=== PATIENT | male | born 1950 ===

== ENCOUNTER 2017-04-29 10:39 | Emergency (ER) | payer MEDICARE ==
[2017-04-29] MEDS ORDERED: Lidocaine 1%* 5 ML VIAL INJ ONE (11:26)
--- NOTE | 2017-04-29 11:26 | UC ---
Laceration HPI - HPI Summary HPI Summary: 67 Y/O male with c/O laceration to left side of forehead. States was up on ladder and a approximately 1 foot piece of 4 x 4 fell on his head. Denies LOC, loss of consciousness, dizziness, visual impairment, nausea or vomiting. States did not fall or receive any other injuries. Medical history and medications reviewed at this visit. States most recent tetanus approximately one year ago. - History Of Current Complaint Chief Complaint: UCLaceration Stated Complaint: LACERATION Time Seen by Provider: 04/29/17 11:05 Hx Obtained From: Patient Laceration Location: Head Mechanism Of Injury: Blunt Trauma Onset/Duration: Sudden Onset Severity: Mild Pain Intensity: 2 Pain Scale Used: 0-10 Numeric Aggravating Factors: Nothing - Allergies/Home Medications Allergies/Adverse Reactions: Allergies Allergy/AdvReac Type Severity Reaction Status Date / Time No Known Allergies Allergy Verified 04/29/17 10:51 Home Medications: Home Medications Zolpidem Tartrate [Ambien] 5 mg PO DAILY PRN 04/29/17 [History Confirmed ] PMH/Surg Hx/FS Hx/Imm Hx Previously Healthy: Yes - Surgical History Surgical History: None - Social History Alcohol Use: Weekly Substance Use Type: None Smoking Status (MU): Never Smoked Tobacco - Immunization History Most Recent Tetanus Shot: unknown Review of Systems Constitutional: Negative Skin: Other - Laceratio to L forehead Eyes: Negative ENT: Negative Respiratory: Negative Cardiovascular: Negative Gastrointestinal: Negative Genitourinary: Negative Motor: Negative Neurovascular: Negative Musculoskeletal: Negative Neurological: Negative Psychological: Negative Is Patient Immunocompromised?: No All Other Systems Reviewed And Are Negative: Yes Physical Exam Triage Information Reviewed: Yes Appearance: Well-Appearing Vital Signs: Initial Vital Signs Temp 96.7 F 04/29/17 10:47 Pulse 65 04/29/17 10:47 Resp 16 04/29/17 10:47 BP 117/61 04/29/17 10:47 Pulse Ox 100 04/29/17 10:47 Vital Signs Reviewed: Yes Eye Exam: Normal Neck exam: Normal Neck: Positive: Supple Respiratory Exam: Normal Respiratory: Positive: Lungs clear, Normal breath sounds Cardiovascular Exam: Normal Cardiovascular: Positive: RRR Abdominal Exam: Normal Abdomen Description: Positive: Nontender Bowel Sounds: Positive: Present Musculoskeletal Exam: Normal Musculoskeletal: Positive: Strength Intact Neurological Exam: Normal Neurological: Positive: Alert Psychological Exam: Normal Skin Exam: Normal Laceration Repair - Laceration Repair 1 Description: Linear Laceration Size After Repair: Length (cm) - 2.54cm Modified For Repair: No Type Injection: Local Anesthesia Used: 1.0% Lido Cleansing Completed Via Routine Prep: Yes Irrigation With Pressure Irrigation Device: Yes Closure Material: Sutures - 3 sutures Closure Method: Single Layer Suture Of: Skin Suture Type: Vicryl Laceration Course/Dx - Differential Dx - Laceration/Wound Differental Diagnoses: Laceration Provider Diagnoses: Laceration Discharge - Discharge Plan Condition: Stable Disposition: HOME Patient Education Materials: Care For Your Stitches (ED) Additional Instructions: You have three sutures to your forehead. Please follow suture care instructions. For signs of infection please return to Urgent Care. You may return to Urgent care in 7-10 days for suture removal.
[2017-04-29] MEDS ORDERED: Lidocaine 1% MPF* 2 ML VIAL ONE (11:53)
[2017-04-29 12:52] VITALS: BP 118/70
== END 2017-04-29 13:04 | disposition home or self-care (01) ==
LOC: UCEAST 10:39
DX: S01.81XA Laceration without foreign body of other part of head, initial encounter (principal); W20.8XXA Other cause of strike by thrown, projected or falling object, initial encounter; Y93.9 Activity, unspecified; Y92.9 Unspecified place or not applicable; Y99.9 Unspecified external cause status
CPT/HCPCS: 12001; 99212; G0463

== ENCOUNTER 2018-09-06 19:33 | Emergency (ER) | payer MEDICARE ==
--- NOTE | 2018-09-06 20:08 | UC ---
Shoulder Pain HPI - HPI Summary HPI Summary: 68 yo male presents with LEFT shoulder injury. He tells me that last night he was getting out of a car and his foot slipped on the ice. Twisted awkwardly and fell onto the asphalt. Since that time has had left shoulder pain and decreased ROM. Sharp pain with flexion of shoulder. Has taken some tylenol with mild relief. Denies numbness or tingling. He is right handed. - History of Current Complaint Stated Complaint: L SHOULDER INJURY Time Seen by Provider: 09/06/18 20:03 Hx Obtained From: Patient Onset/Duration: Sudden Onset Severity Initially: Moderate Severity Currently: Moderate Pain Intensity: 6 Pain Scale Used: 0-10 Numeric - Allergies/Home Medications Allergies/Adverse Reactions: Allergies Allergy/AdvReac Type Severity Reaction Status Date / Time No Known Allergies Allergy Verified 09/06/18 20:10 PMH/Surg Hx/FS Hx/Imm Hx - Additional Past Medical History Additional PMH: Insomnia Psychological History: Depression - Surgical History Surgical History: None - Family History Known Family History: Positive: None - Social History Occupation: Employed Full-time Lives: With Family Alcohol Use: Weekly Substance Use Type: None Smoking Status (MU): Never Smoked Tobacco - Immunization History Most Recent Tetanus Shot: unknown Review of Systems All Other Systems Reviewed And Are Negative: Yes Constitutional: Positive: Negative Skin: Positive: Negative Respiratory: Positive: Negative Cardiovascular: Positive: Negative Neurovascular: Positive: Negative Musculoskeletal: Positive: Other: - Left shoulder pain Neurological: Positive: Negative Psychological: Positive: Negative Physical Exam - Summary Physical Exam Summary: GENERAL: NAD. WDWN. No pain distress. SKIN: No rashes, sores, lesions, or open wounds. CHEST: No accessory muscle use. Breathing comfortably and in no distress. CV: Pulses intact radial and ulnar. Cap refill <2seconds MSK: LEFT SHOULDER: NTTP. Active flexion >45deg causes sharp pain. Passive ROM without pain. No edema or obvious bony deformities. Positive empty can, neer, and lopez-sammie. NEURO: Alert. Sensations intact C4-T1. PSYCH: Age appropriate behavior. Triage Information Reviewed: Yes Vital Signs: Vital Signs: Temp Pulse Resp BP Pulse Ox 98 F 66 16 133/75 100 09/06/18 20:04 09/06/18 20:04 09/06/18 20:04 09/06/18 20:04 09/06/18 20:04 Vital Signs Reviewed: Yes Shoulder Course/Dx - Course Course Of Treatment: XR: No radiologist reading after 1800, therefore wet read by myself is negative for acute process. OLAMIDE and exam very suspicious for RTC injury. Demonstrated pendulum exercises in the clinic and he was provided a sling for comfort. Advised to RICE and f/u with [facility] for further evaluation. - Differential Dx/Diagnosis Provider Diagnosis: Dysfunction of left rotator cuff Discharge - Sign-Out/Discharge Documenting (check all that apply): Patient Departure All imaging exams completed and their final reports reviewed: No - Discharge Plan Condition: Stable Disposition: HOME Patient Education Materials: Rotator Cuff Injury (ED), Exercises for Shoulder Flexion and Extension (ED), Early Postoperative or Post Injury Shoulder Exercises (ED) Referrals: No Primary Care Phys,NOPCP [Primary Care Provider] - [facility] [Provider Group] - As Soon As Possible Additional Instructions: If you develop a fever, shortness of breath, chest pain, new or worsening symptoms - please call your PCP or go to the ED. Please call [facility] at the number below to schedule a follow up appointment as soon as possible. Practice the pendulum exercises as demonstrated in the clinic a few times a day to keep your shoulder muscles loose. May take naproxen/ibuprofen for discomfort. - Billing Disposition and Condition Condition: STABLE Disposition: Home
[2018-09-06 20:09] VITALS: BP 133/75
--- NOTE | 2018-09-07 08:04 | UC ---
- Progress Note Progress Note: OFFICIAL RADIOLOGY REPORT REVIEWED. NO EVIDENCE OF FRACTURE. NO CHANGE IN MGMT. Course/Dx - Diagnoses Provider Diagnoses: Dysfunction of left rotator cuff Discharge - Sign-Out/Discharge Documenting (check all that apply): Post-Discharge Follow Up All imaging exams completed and their final reports reviewed: Yes - Discharge Plan Condition: Stable Disposition: HOME Patient Education Materials: Rotator Cuff Injury (ED), Exercises for Shoulder Flexion and Extension (ED), Early Postoperative or Post Injury Shoulder Exercises (ED) Referrals: [facility] [Provider Group] - As Soon As Possible No Primary Care Phys,NOPCP [Primary Care Provider] - Additional Instructions: If you develop a fever, shortness of breath, chest pain, new or worsening symptoms - please call your PCP or go to the ED. Please call [facility] at the number below to schedule a follow up appointment as soon as possible. Practice the pendulum exercises as demonstrated in the clinic a few times a day to keep your shoulder muscles loose. May take naproxen/ibuprofen for discomfort. - Billing Disposition and Condition Condition: STABLE Disposition: Home
== END 2018-09-06 20:52 | disposition home or self-care (01) ==
LOC: UCEAST 19:33
DX: S49.92XA Unspecified injury of left shoulder and upper arm, initial encounter (principal); W00.0XXA Fall on same level due to ice and snow, initial encounter; Y92.9 Unspecified place or not applicable
CPT/HCPCS: 99212; G0463